=== PATIENT | female | born 1965 | race Caucasian/White ===

== ENCOUNTER 2018-10-28 20:23 | Emergency (ER) | payer OTHER, SELFPAY ==
[2018-10-28] VITALS (15 sets, daily range): BP systolic 127–158; BP diastolic 60–92; PULSE 71–85; RESP 13–21; TEMP 36.2; O2SAT 98–100
--- NOTE | 2018-10-28 20:36 | ED.GENADUL_ITS ---
Discharge Plan Discharge Details Chief Complaint: Chest Pain Primary Care Provider: Unknown,Unknown ED Provider: Katelyn Vyas Home Meds and New Rx's Prescriptions: No Action levothyroxine 175 mcg tablet 175 mcg PO DAILY RF: 0 clonazepam 2 mg tablet 2 mg PO DAILY RF: 0 mecobalamin (vitamin B12) 5,000 mcg tablet,disintegrating PO RF: 0 biotin 2,500 mcg capsule 5,000 mcg PO DAILY RF: 0 cholecalciferol (vitamin D3) 5,000 unit capsule 5,000 unit PO .3 times per week RF: 0 iron,carbonyl-vitamin C [Vitron-C] 65 mg iron- 125 mg tablet,delayed release (DR/EC) 1 tab PO BID RF: 0 multivitamin capsule 2 cap PO DAILY RF: 0 calcium citrate-vitamin D3 500 mg calcium -400 unit tablet,chewable 2 tab PO BID RF: 0 polyethylene glycol 3350 [GlycoLax] 17 gram/dose powder PO DAILY RF: 0 ibuprofen 200 mg capsule 200 mg PO QID PRNRF: 0 acetaminophen 325 mg capsule 325 mg PO Q4H PRNRF: 0 Medical Decision Making ECG Data Attestation: I personally reviewed and interpreted this ECG (s) as follows: Prior ECG tracings: not available for review Interpretation: sinus rhythm, rate of 86, qtc 344, no acute st t wave ischemic findings HPI General Date/Time Provider Initiated Documentation: 10/28/18 20:26 . Related Data Home Medications Medication Instructions Recorded Confirmed acetaminophen 325 mg capsule 325 mg PO Q4H PRN 08/11/18 08/11/18 biotin 2,500 mcg capsule 5,000 mcg PO DAILY cap 08/11/18 08/11/18 calcium citrate-vitamin D3 500 mg 2 tab PO BID tab 08/11/18 08/11/18 calcium-400 unit chewable tablet cholecalciferol (vitamin D3) 5,000 5,000 unit PO .3 times per week 08/11/18 08/11/18 unit capsule cap clonazepam 2 mg tablet 2 mg PO DAILY tab 08/11/18 08/11/18 ibuprofen 200 mg capsule 200 mg PO QID PRN 08/11/18 08/11/18 iron,carbonyl 65 mg-vitamin C 125 1 tab PO BID 08/11/18 08/11/18 mg tablet,delayed release levothyroxine 175 mcg tablet 175 mcg PO DAILY 08/11/18 08/11/18 mecobalamin (vitamin B12) 5,000 mcg PO tab 08/11/18 08/11/18 mcg disintegrating tablet multivitamin capsule 2 cap PO DAILY cap 08/11/18 08/11/18 polyethylene glycol 3350 17 PO DAILY gm 08/11/18 08/11/18 gram/dose oral powder Allergies Allergy/AdvReac Type Severity Reaction Status Date / Time No Known Allergies Allergy Verified 10/28/18 20:36 PFS Social History adopted: No foster care: No household members: spouse number of children: 3 current occupational status: employed 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
--- NOTE | 2018-10-28 20:56 | DI.RAD_ITS ---
SYMPTOM/DIAGNOSIS: CHEST PAIN PA AND LATERAL CHEST: The heart size is normal. The aorta is normal in diameter. The lungs appear clear. IMPRESSION: Negative chest xray.
--- NOTE | 2018-10-28 20:58 | W.ED.GENAD ---
Discharge Plan Disposition Patient Disposition: HOME Discharge Details Chief Complaint: Chest Pain Clinical Impression: Chest pain Primary Care Provider: Nicole Jerome ED Provider: Katelyn Vyas Home Meds and New Rx's Prescriptions: Continued levothyroxine 175 mcg tablet 175 mcg PO DAILY RF: 0 clonazepam 2 mg tablet 2 mg PO DAILY RF: 0 mecobalamin (vitamin B12) 5,000 mcg tablet,disintegrating PO RF: 0 cholecalciferol (vitamin D3) 5,000 unit capsule 5,000 unit PO .3 times per week RF: 0 Vitron-C 65 mg iron- 125 mg tablet,delayed release (DR/EC) 1 tab PO BID RF: 0 multivitamin capsule 2 cap PO DAILY RF: 0 calcium citrate-vitamin D3 500 mg calcium -400 unit tablet,chewable 2 tab PO BID RF: 0 polyethylene glycol 3350 [GlycoLax] 17 gram/dose powder PO DAILY RF: 0 ibuprofen 200 mg capsule 200 mg PO QID PRNRF: 0 acetaminophen 325 mg capsule 325 mg PO Q4H PRNRF: 0 Discharge Instructions Instructions: Chest Pain (ED) Additional Instructions: Begin Ranitidine again, 150mg daily. This is available over the counter. Keep journal of symptoms along with food intake around symptoms. Please call primary care tomorrow to discuss visit and follow up. Please follow up within the next week. If you develop increased pain, pain with exertion, shortness of breath or other new/worsening symptoms please seek care urgently once again. Discharge Data Discharge Date/Time-TO BE ENTERED AT DEPARTURE: 10/28/18 22:22 Medical Decision Making Patient is a 53-year-old female, accompanied by her , with chief complaint of left-sided chest discomfort that began 3 days ago. Pain has waxed and waned. She reports that particularly bothersome at night particular when she rolls onto her left side. She denies any shortness of breath. Denies any palpitations. Patient does have history of PVCs and reported heart murmur, murmur was not appreciated on exam. States she has had a lots of indigestion recently. Reports that this is not atypical for her given her history of gastric bypass. Reports that typically she can be symptom free but does report a large change in diet recently with the holidays. Was initially on Ranitidine to help with these symptoms after surgery initially. States that pain is typically when at rest, when I notice it. States that typically when busy she does not notice it. However, she has noted the discomfort today when going up stairs. States pain is increased with pressure application, caused discomfort when he hugged her today. Denies recent illness, deneis cough, no GI upset. Pain does not radiate into back. Denies SOB Exam is benign. BP elevated at 158/92. Pulse 85, O2 100%, afebrile. Pain is elicited with pressure applied to the left side of the chest anteriorly and laterally. No pain posteriorly. EKG reviewed by Dr. Samson, please see his note. NSR, rate 86. CXR reviewed by radiologist: FINDINGS: Lungs: Mild elevation of the left hemidiaphragm. No consolidation. Pleural space: Unremarkable. No pleural effusion. No pneumothorax. Heart/Mediastinum: Unremarkable. No cardiomegaly. Bones/joints: No acute bony findings. IMPRESSION: No acute findings. Lungs are clear. Labs without signfiicant abnormality. Troponin <0.02. As symptoms have been over the past 3 days, do not feel that repeat is necessary at this time. Patient received GI cocktail and feels much improved. Advised that at this time her symptoms do not raise high suspicion for cardiac source, labs and imaging are also reassuring. Discussed this with the patient. She has appointment with PCP next week. As she is feeling so much improved, will have her restart her Ranitidine as she has been on this previously and has had good success. Advised that her symptoms may be secondary to GI source vs. musculoskeletal discomfort. She was given strict return precautions. She will contact PCP tomorrow to discuss symptoms and ensure these can also be addressed at upcoming appointment. All of her questions and concerns were addressed, she is in agreement with this plan. HPI General Mode of arrival: ambulatory. Date/Time Provider Initiated Documentation: 10/28/18 20:26. Limitations to Documentation: no limitations. Information obtained by: patient and family. History of Present Illness 53 year old F presents to the emergency department with the chief complaint of chest discomfort, described as mild, with intensity rated at 3. Quality is described as aching, and is localized to the chest. Patient reports no radiation. Patient started experiencing this day(s) (3) and it has been intermittent. No relieving factors improve symptom(s), Immoblization worsens symptoms . Patient notes chest pain and loss of appetite; denies cough, diaphoresis, fever/chills, headaches, nausea/vomiting, rash and shortness of breath. Patient did receive the following treatments prior to arrival, none Related Data Home Medications Medication Instructions Recorded Confirmed acetaminophen 325 mg capsule 325 mg PO Q4H PRN 08/11/18 10/28/18 calcium citrate-vitamin D3 500 mg 2 tab PO BID tab 08/11/18 10/28/18 calcium-400 unit chewable tablet cholecalciferol (vitamin D3) 5,000 5,000 unit PO .3 times per week 08/11/18 10/28/18 unit capsule cap clonazepam 2 mg tablet 2 mg PO DAILY tab 08/11/18 10/28/18 ibuprofen 200 mg capsule 200 mg PO QID PRN 08/11/18 10/28/18 iron,carbonyl 65 mg-vitamin C 125 1 tab PO BID 08/11/18 10/28/18 mg tablet,delayed release levothyroxine 175 mcg tablet 175 mcg PO DAILY 08/11/18 10/28/18 mecobalamin (vitamin B12) 5,000 mcg PO tab 08/11/18 08/11/18 mcg disintegrating tablet multivitamin capsule 2 cap PO DAILY cap 08/11/18 10/28/18 polyethylene glycol 3350 17 PO DAILY gm 08/11/18 08/11/18 gram/dose oral powder Allergies Allergy/AdvReac Type Severity Reaction Status Date / Time No Known Allergies Allergy Verified 10/28/18 20:36 General Stated Complaint: Chest Pain JOSE ALEJANDRO: 3 Review of Systems Constitutional Reports as per HPI, Denies chills, Denies fever(s), Denies headache(s), Denies lethargy and Denies poor appetite Eyes Denies change in vision ENT Denies headache(s) Cardiovascular Reports as per HPI, Reports chest pain, Reports chest pain at rest, Denies chest pain with activity, Denies diaphoresis, Denies syncope, Denies rapid heart rate, Denies edema, Denies irregular heart rhythm, Denies lightheadedness, Reports radiating jaw, neck or arm pain (pain can radiate into the left shoulder), Denies palpitations, Denies dyspnea and Denies dyspnea on exertion Respiratory Reports as per HPI, Denies cough, Denies dyspnea, Denies dyspnea on exertion and Denies wheezing Gastrointestinal Reports as per HPI, Denies abdominal pain, Denies diarrhea, Denies nausea and Denies vomiting Musculoskeletal Reports as per HPI and Denies back pain Integumentary/Breasts Reports as per HPI and Denies rash Neurologic Denies syncope and Denies headache(s) Endocrine Denies palpitations Allergic/Immunologic Denies wheezing [facility] Medical History PVCs (premature ventricular contractions) (Chronic) Hypothyroidism (Chronic 05/23/18) Hyperlipidemia (Chronic 05/23/18) Borderline hypertension (Chronic 05/23/18) Surgical History Status post panniculectomy (Resolved) History of Jasbir-en-Y gastric bypass (Resolved) History of foot surgery (Resolved) History of section (Resolved) History of carpal tunnel release (Resolved) Family History Mother Hypertension Anxiety Depression Father Heart attack Social History adopted: No foster care: No household members: spouse number of children: 3 current occupational status: employed 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 pets and animals: Yes pets and animals: cat(s) Hx Recent Travel: No frequency: 5-6 times per week duration: 45-60 minutes/day Smoking/Tobacco Use Status: Never passive smoking exposure: No second hand exposure: No alcohol intake: current alcohol intake frequency: a few times a month substance use type: does not use do you feel safe at home: Yes Exam Const General: cooperative, healthy appearing, comfortable, no acute distress and well developed Nutritional Appearance: average body habitus and well nourished Orientation: alert, awake and oriented x3 HENMT Head: normal to inspection Ears: hearing grossly normal bilaterally Mouth: moist mucous membranes Chest Chest: normal inspection of the chest, normal palpation of entire chest wall, no crepitus and tenderness pectoral muscle on the left diffusely Resp Effort & Inspection: normal respiratory effort, able to speak in complete sentences and no respiratory distress Auscultation: clear to auscultation bilaterally, no rales, no rhonchi and no wheezes Cardio Rate: regular rate Rhythm: regular rhythm Heart Sounds: S1 normal and S2 normal GI Inspection: normal to inspection, no edema and non-distended Palpation: soft, no hepatosplenomegaly, not firm, no guarding, not rigid and nontender Auscultation: normal bowel sounds Back/Spine/Pelvis Back: no CVA tenderness Thoracic/Lumbar Spine: thoracic and lumbar spine normal to inspection Skin General skin exam: no rashes or lesions noted Trauma: no lacerations or abrasions Neuro General: alert, awake and oriented x3 Cognition: normal cognition Speech: speech normal Gait: normal gait Extrem General: normal to inspection, normal capillary refill, no pedal edema, no calf tenderness and normal gait Psych Appearance: grossly normal and well kempt Mental Status: mental status grossly normal Speech and Movement: speech and movement normal Course Vital Signs Temperature 36.2 C L 10/28/18 20:36 Pulse 85 10/28/18 20:36 Respiratory Rate 16 10/28/18 20:36 Blood Pressure 158/92 H 10/28/18 20:36 Pulse Oximetry 100 10/28/18 20:36 Temperature 36.2 C L 10/28/18 20:36 Temperature Source Temporal Artery Scan 10/28/18 20:36 Pulse 85 10/28/18 20:36 Respiratory Rate 16 10/28/18 20:43 Respiratory Effort 10/28/18 20:36 Blood Pressure 158/92 H 10/28/18 20:36 Blood Pressure Position Sitting 10/28/18 20:36 Pulse Oximetry 100 10/28/18 20:36 Oxygen Delivery Method Room Air 10/28/18 20:36 Oxygen Flow Rate 0 10/28/18 20:36 Pain Level 4 10/28/18 20:36
[2018-10-28 21:10] LABS: Abs Immature Grans 0.02 k/cumm (0.0-0.09); Absolute Basophil Count 0.04 k/cumm (0.0-0.2); Absolute Eosinophil Count 0.27 k/cumm (0.0-0.7); Absolute Lymphocyte Count 2.09 k/cumm (1.2-3.4); Absolute Monocyte Count 0.54 k/cumm (0.11-0.7); Absolute Neutrophil Count 3.58 k/cumm (1.2-6.7); Basophils % 0.6; Eosinophils % 4.1; HCT 38.2 % (36.0-46.0); HGB 13.1 g/dL (12.0-15.5); Immature Grans % 0.3; Mean Corp. HGB Concentration 34.3 g/dL (32.0-36.0); Mean Corpuscular Hemoglobin 30.5 pg (27.0-33.0); Mean Platelet Volume 9.9 fL (8.0-11.0); Monocytes % 8.3; Neutrophils % 54.7; Platelet Count 239 x1000/uL (130-400); RBC 4.29 m/cumm (4.00-5.20); RBC Distribution Width 13.2 % (11.7-14.6); White Blood Cell Count 6.54 k/cumm (4.4-10.8)
[2018-10-28 21:23] LABS: PTT Activated 21.6 sec (21.0-31.4); Prothrombin Time 9.9 sec (9.3-11.0)
[2018-10-28 21:24] LABS: ALT 32 U/L (12-78); AST 16 U/L (15-37); Albumin 3.6 g/dL (3.4-5.0); Alkaline Phosphatase 77 U/L (46-116); BUN 15 mg/dL (7-18); Bilirubin, Total 0.2 mg/dL (0.2-1.0); CREATININE 0.78 mg/dL (0.55-1.02); Calcium 8.8 mg/dL (8.5-10.1); Chloride 104 mmol/L (98-107); Glucose 101 mg/dL (70-100); Lipase 113 U/L (73-393); Potassium 3.9 mmol/L (3.5-5.1); Sodium 142 mmol/L (136-145); Total Protein 7.4 g/dL (6.4-8.2)
[2018-10-28 21:25] LABS: Troponin I < 0.02 ng/mL (0.00-0.06)
--- NOTE | 2018-10-28 21:54 | DI.VRAD_ITS ---
EXAM: XR Chest, 2 Views EXAM DATE/TIME: 10/28/2018 8:59 PM CLINICAL HISTORY: 53 years old, female; Pain; Other: Cp TECHNIQUE: XR of the chest, 2 views. COMPARISON: No relevant prior studies available. FINDINGS: Lungs: Mild elevation of the left hemidiaphragm. No consolidation. Pleural space: Unremarkable. No pleural effusion. No pneumothorax. Heart/Mediastinum: Unremarkable. No cardiomegaly. Bones/joints: No acute bony findings. IMPRESSION: No acute findings. Lungs are clear. Dictated and Authenticated by: Demetris Yi MD. Ordering:FAITH Zepeda MD
== END 2018-10-28 22:22 | disposition home or self-care (01) ==
PROVIDERS: Emergency Provider Physician Assistant; PCP Nurse Practitioner Family
DX: R07.9 Chest pain, unspecified (principal); Z86.79 Personal history of other diseases of the circulatory system
CPT/HCPCS: 36415; 80053; 83690; 99285; 71046; 83735; 84484; 85025; 85610; 85730; 99283

== ENCOUNTER 2019-04-07 17:51 | Outpatient (REF) | payer OTHER, SELFPAY ==
--- NOTE | 2019-04-07 16:30 | PAPFT_PTH ---
PATIENT: Sheridan Lopez LOC: [facility] U#:[id number] AGE/SX: 53/F ROOM: RE04/07/[address]: Nicole Jerome : 1965 BED: DIS: 04/07/2019 SPEC #: [id number] RECD: 04/08/19 13:05 STATUS: REINA REMilly #: [id number] GORGE: 04/07/19 16:[address]: Nicole Jerome DEPT: [facility] Cytology RECD BY: Ute Ruiz Tissues: 1 - CX/ENDOCX FOR PAP SMEARS Procedures: PAP THIN PREP/UVM Screening HPV DNA PROBE Comments: [id number]
== END 2019-04-07 18:11 ==
LOC: NCHCN 17:51
PROVIDERS: PCP Nurse Practitioner Family; Visit Provider Nurse Practitioner Family
DX: Z12.4 Encounter for screening for malignant neoplasm of cervix (principal); Z11.51 Encounter for screening for human papillomavirus (HPV)
CPT/HCPCS: 88142; 87624

== ENCOUNTER 2019-05-18 00:34 | Outpatient (CLI) | payer OTHER, SELFPAY ==
--- NOTE | 2019-05-18 17:06 | DI.MAMMO_ITS ---
SYMPTOM/DIAGNOSIS: SCREENING, Z12.31 MAMMOGRAMS: Mammograms were interpreted according to the usual protocol including computer analysis with CAD system, tomosynthesis and C view imaging. Comparison is with the prior examinations. No suspicious masses or microcalcifications are seen. There is no definite evidence of malignancy. IMPRESSION: Negative mammogram. Routine screening is recommended. Category 1, breast density B. MQSA ASSESSMENT OF FINDINGS: Negative. Category 1. Patient will receive a letter notifying them of these results. BI-RADS category B. There are scattered areas of fibroglandular density.
== END 2019-05-18 00:54 ==
PROVIDERS: PCP Nurse Practitioner Family; Visit Provider Nurse Practitioner Family
DX: Z12.31 Encounter for screening mammogram for malignant neoplasm of breast (principal)
CPT/HCPCS: 77063; 77067

== ENCOUNTER 2019-10-05 13:21 | Outpatient (CLI) | payer OTHER, SELFPAY ==
[2019-10-05 15:58] LABS: Iron 54 ug/dL (50-170); Total Iron Binding Capacity 306 ug/dL (250-450); Transferrin Sat 18 % (15-50)
[2019-10-05 16:04] LABS: Ferritin 79 ng/mL (8-252)
== END 2019-10-05 13:41 ==
PROVIDERS: PCP Nurse Practitioner Family; Visit Provider Nurse Practitioner Family
DX: E83.10 Disorder of iron metabolism, unspecified (principal); K90.9 Intestinal malabsorption, unspecified; Z98.84 Bariatric surgery status
CPT/HCPCS: 36415; 82728; 83540; 83550

== ENCOUNTER 2019-10-05 15:18 | Outpatient (CLI) | payer OTHER, SELFPAY ==
--- NOTE | 2019-10-05 12:51 | DI.US_ITS ---
EXAM: US LOWER EXTREMITY VENOUS LT CLINICAL HISTORY: LOCALIZED SWELLING ON LT LEG, R22.42 TECHNIQUE: Ultrasound performed using standard protocol. COMPARISON: No exams were available for comparison FINDINGS: Thrombus is visible in the greater saphenous vein 2.4 centimeters from the saphenofemoral junction ex tending distally. No deep venous thrombosis is identified. No Yao cyst is seen. IMPRESSION: Saphenous thrombosis. No evidence of deep venous thrombosis.
== END 2019-10-05 15:38 ==
PROVIDERS: PCP Nurse Practitioner Family; Visit Provider Nurse Practitioner Family
DX: R22.42 Localized swelling, mass and lump, left lower limb (principal); M79.662 Pain in left lower leg; I82.812 Embolism and thrombosis of superficial veins of left lower extremity
CPT/HCPCS: 93971

== ENCOUNTER 2020-05-06 02:39 | Outpatient (CLI) | payer OTHER, SELFPAY ==
--- NOTE | 2020-05-06 | DI.US_ITS ---
EXAM: US PELVIS TRANSVAGINAL CLINICAL HISTORY: POSTMENOPAUSAL BLEEDING, N95.0 TECHNIQUE: Transabdominal and transvaginal imaging was performed using standard protocol. COMPARISON: US PELVIS TRANSVAG from 02/11/2015 FINDINGS: Exam is limited by the patient's body habitus. The uterus was not well seen on the transvaginal imag es. The endometrial stripe was not well evaluated. The ovaries are well seen. KIDNEYS: Kidneys are symmetric in size. No evidence of renal calculi. No evidence of hydronephrosis. No renal mass or cyst identified. UTERUS: Anteverted. 8.4 x 4.4 x 5.2 cm Endometrium: measures 7 millimeters on transabdominal images. Not seen on transvaginal images. Myometrium: Unremarkable. No fibroids are visible. Cervix: Unremarkable. OVARIES: Right: Cyst or mass: None. Left: Cyst or mass: 1.1 centimeter simple cyst. DOPPLER: Color: Symmetric and uniform flow to both ovaries. No hyperemia. Duplex: Normal ovarian arterial waveforms visualized. CUL-DE-SAC: Free fluid: None. IMPRESSION: Limited evaluation of the endometrial stripe. 7 millimeters on trans abdominal imaging. DATA REPOSITORY:
== END 2020-05-06 02:59 ==
PROVIDERS: PCP Nurse Practitioner Family; Visit Provider Obstetrics & Gynecology
DX: N95.0 Postmenopausal bleeding (principal); N83.292 Other ovarian cyst, left side
CPT/HCPCS: 76830; 76856

== ENCOUNTER 2021-06-16 14:14 | Outpatient (REF) | payer OTHER, SELFPAY ==
[2021-06-16 21:00] LABS: Calculated LDL 141 mg/dL (<100); Cholesterol 237 mg/dL (<200); HDL Cholesterol 78 mg/dL (40-60); TSH (W/Ref FT4) 0.37 uIU/mL (0.36-3.74); Triglyceride 94 mg/dL (<150)
== END 2021-06-16 14:15 | disposition home or self-care (01) ==
LOC: NCHCN 14:14
PROVIDERS: PCP Nurse Practitioner Family; Visit Provider Nurse Practitioner Family
DX: E03.9 Hypothyroidism, unspecified (principal); Z13.220 Encounter for screening for lipoid disorders
CPT/HCPCS: 80061; 84443

== ENCOUNTER 2021-07-05 02:06 | Outpatient (CLI) | payer OTHER, SELFPAY ==
--- NOTE | 2021-07-05 | DI.DEXA_ITS ---
Exam(s) XR DEXA BONE DENSITY W/WO CHRIS EXAM: XR DEXA BONE DENSITY W/WO CHRIS CLINICAL HISTORY: H/O GASTRIC BYPASS, SCREENING FOR OSTEOPOROSIS TECHNIQUE: Routine DEXA evaluation of the lumbar spine, hip, or forearm. COMPARISON: No exams were available for comparison FINDINGS: Performed on a Hologic unit. Lateral image: No compression fracture evident. Lumbar Spine total T-score: -0.4 Hip total T-score:-1.9 Independent reading at the femoral neck yields a T-score of -2.1 Forearm total T-score: -3.0 IMPRESSION: Bone mineral density measures in the osteopenia- osteoporosis range. Fracture risk is moderate-high. Note: Any spine fracture indicates 5x risk for subsequent spine fracture and 2x risk for subsequent h ip fracture. World Health Organization criteria for BMD interpretation classify patients: Normal...... T- Score at or above -1.0 Osteopenic... T- Score between -1.0 and -2.5 Osteoporosis... T-Score at or below -2.5
== END 2021-07-05 02:26 ==
PROVIDERS: PCP Nurse Practitioner Family; Visit Provider Nurse Practitioner Family
DX: Z98.84 Bariatric surgery status; M85.89 Other specified disorders of bone density and structure, multiple sites; M81.0 Age-related osteoporosis without current pathological fracture
CPT/HCPCS: 77080

== ENCOUNTER 2021-07-17 00:39 | Outpatient (CLI) | payer OTHER, SELFPAY ==
--- NOTE | 2021-07-17 16:10 | DI.MAMMO_ITS ---
Exam(s) MAMMO SCREENING EXAM: MAMMO SCREENING CLINICAL HISTORY: SCREENING, Z12.31. TECHNIQUE: Bilateral full field digital CC and MLO mammographic images were obtained with 3D tomosyn thesis and utilizing computer aided detection (CAD). COMPARISON: Prior mammograms dating back to 2011, the most recent being April 2019. FINDINGS: There are no CAD designations. There are no new spiculated masses nor malignant appearing microcalcification groups. There is no significant architectural distortion nor skin thickening-retraction. IMPRESSION: No radiographic evidence of malignancy. BI-RADS Category 1 - Negative Breast Density - Category B - Scattered areas of fibroglandular density Breast density Category C or D implies that the patient has dense breast tissue. Dense breast tissue can make it harder to find cancer on a mammogram. Dense breast tissue is also associated with an incr eased risk of breast cancer. This information about the result of the mammogram report was provided to the patient to raise their awareness. Use this report when you speak with the patient about their risks for breast cancer, which includes their family history. At that time, you may recommend additional screening tests (Ultrasoun d or MRI) as these tests may add significant information. A negative radiographic report should not delay biopsy if a dominant or clinically suspicious mass is present. Up to ten percent of cancers are not identified on mammography. A negative report may reinforce clinical impression. Adenosis and dense breasts may obscure an underlying neoplasm. False positive reports average 6 to 10%. Patient will receive a letter notifying them of these results.
== END 2021-07-17 00:59 ==
PROVIDERS: PCP Nurse Practitioner Family; Visit Provider Nurse Practitioner Family
DX: Z12.31 Encounter for screening mammogram for malignant neoplasm of breast (principal)
CPT/HCPCS: 77063; 77067

== ENCOUNTER 2022-05-09 16:12 | Outpatient (REF) | payer OTHER, SELFPAY ==
[2022-05-09 20:25] LABS: HCT 39.7 % (36.0-46.0); HGB 13.2 g/dL (11.2-15.7); MCH 30.1 pg (27.0-33.0); MCHC 33.2 % (32.0-36.0); MCV 90 fL (80-95); MPV 10.7 fL (8.0-11.0); Platelet Count 266 10^3/uL (130-400); RBC 4.39 10^6/uL (3.93-5.22); RDW-SD 42.7 fL; WBC 7.67 10^3/uL (4.4-10.8)
[2022-05-09 21:00] LABS: Hemoglobin A1C 5.4 % (<5.7)
[2022-05-09 21:11] LABS: Iron 83 ug/dL (50-170); Total Iron Binding Capacity 369 ug/dL (250-450); Transferrin Sat 22 % (15-50)
[2022-05-09 21:33] LABS: ALT 38 U/L (14-59); AST 20 U/L (15-37); Albumin 4.2 g/dL (3.4-5.0); Alkaline Phosphatase 80 U/L (46-116); Anion Gap 11.4 mmol/L (3-11); BUN 23 mg/dL (7-18); Bilirubin, Total 0.3 mg/dL (0.2-1.0); CO2 29.6 mmol/L (21.0-32.0); CREATININE 0.9 mg/dL (0.55-1.02); Calcium 9.1 mg/dL (8.5-10.1); Chloride 103 mmol/L (98-107); Ferritin 91 ng/mL (8-252); Glucose 91 mg/dL (74-106); Potassium 4.8 mmol/L (3.5-5.1); Sodium 144 mmol/L (136-145); TSH (W/Ref FT4) 1.35 uIU/mL (0.36-3.74); Total Protein 7.8 g/dL (6.4-8.2); Vitamin B12 1066 pg/mL (193-986)
[2022-05-10 05:31] LABS: Vitamin D 25 Total 46.6 ng/mL (30-100)
[2022-05-10 18:31] LABS: Parathyroid Hormone,Intact 104 pg/mL (19-88)
[2022-05-13 17:12] LABS: Thiamine (Vitamin B1), WB 171 nmol/L (70-180)
[2022-05-14 10:20] LABS: Free Retinol (Vitamin A) 52.6 mcg/dL (32.5-78.0)
== END 2022-05-09 16:13 | disposition home or self-care (01) ==
LOC: NCHCN 16:12
PROVIDERS: PCP Nurse Practitioner Family; Visit Provider Nurse Practitioner Family
DX: Z98.84 Bariatric surgery status (principal)
CPT/HCPCS: 80053; 82306; 85027; 82607; 82728; 83036; 83540; 83550; 83970; 84425; 84443; 84590

== ENCOUNTER 2023-02-20 08:27 | Outpatient (REF) | payer OTHER, SELFPAY ==
[2023-02-20 14:45] LABS: HCT 41.4 % (36.0-46.0); HGB 14.2 g/dL (11.2-15.7); MCHC 34.3 % (32.0-36.0); MCV 90 fL (80-95); MPV 10.5 fL (8.0-11.0); Platelet Count 282 10^3/uL (130-400); RBC 4.58 10^6/uL (3.93-5.22); RDW 13.2 % (11.7-14.6); WBC 7.41 10^3/uL (4.4-10.8)
[2023-02-20 15:00] LABS: Iron 77 ug/dL (50-170); Total Iron Binding Capacity 320 ug/dL (250-450); Transferrin Sat 24 % (15-50)
[2023-02-20 15:09] LABS: Hemoglobin A1C 5.4 % (<5.7)
[2023-02-20 15:23] LABS: Vitamin D 25 Total 45.1 ng/mL (30-100)
[2023-02-20 15:25] LABS: ALT 35 U/L (14-59); AST 19 U/L (15-37); Albumin 3.9 g/dL (3.4-5.0); Alkaline Phosphatase 83 U/L (46-116); Anion Gap 5.5 mmol/L (3-11); BUN 14 mg/dL (7-18); Bilirubin, Total 0.4 mg/dL (0.2-1.0); CO2 30.5 mmol/L (21.0-32.0); CREATININE 0.8 mg/dL (0.55-1.02); Calcium 9.1 mg/dL (8.5-10.1); Chloride 104 mmol/L (98-107); Estimated GFR 85.89 (mL/min/1.73m2); Glucose 111 mg/dL (74-106); Potassium 5.1 mmol/L (3.5-5.1); Sodium 140 mmol/L (136-145); TSH (W/Ref FT4) 1.06 uIU/mL (0.36-3.74); Total Protein 7.6 g/dL (6.4-8.2); Vitamin B12 973 pg/mL (193-986)
[2023-02-21 11:26] LABS: Parathyroid Hormone,Intact 87 pg/mL (19-88)
[2023-02-22 17:12] LABS: Free Retinol (Vitamin A) 40.2 mcg/dL (32.5-78.0)
== END 2023-02-20 08:28 | disposition home or self-care (01) ==
LOC: NCHCN 08:27
PROVIDERS: PCP Nurse Practitioner Family; Visit Provider Nurse Practitioner Family
DX: Z98.84 Bariatric surgery status (principal); E66.9 Obesity, unspecified; R79.89 Other specified abnormal findings of blood chemistry; Z00.00 Encounter for general adult medical examination without abnormal findings
CPT/HCPCS: 80053; 82306; 85027; 82607; 83036; 83540; 83550; 83970; 84443; 84590

== ENCOUNTER → 2023-09-23 01:45 | Outpatient (CLI) | payer OTHER, SELFPAY ==
--- NOTE | 2023-09-23 | DI.MAMMO_ITS ---
Exam(s) MAMMO SCREENING EXAM: MAMMO SCREENING CLINICAL HISTORY: SCREENING Z12.39. TECHNIQUE: Bilateral full field digital CC and MLO mammographic images were obtained with 3D tomosyn thesis and utilizing computer aided detection (CAD). COMPARISON: Prior mammograms were reviewed. FINDINGS: There has been no significant change in the appearance and distribution of the fibroglandular tissue. There are no new spiculated masses nor malignant appearing microcalcification groups. There is no significant architectural distortion nor skin thickening-retraction. IMPRESSION: No radiographic evidence of malignancy. BI-RADS Category 1 - Negative Breast Density - Category B - Scattered areas of fibroglandular density Breast density Category C or D implies that the patient has dense breast tissue. Dense breast tissue can make it harder to find cancer on a mammogram. Dense breast tissue is also associated with an incr eased risk of breast cancer. This information about the result of the mammogram report was provided to the patient to raise their awareness. Use this report when you speak with the patient about their risks for breast cancer, which includes their family history. At that time, you may recommend additional screening tests (Ultrasoun d or MRI) as these tests may add significant information. A negative radiographic report should not delay biopsy if a dominant or clinically suspicious mass is present. Up to ten percent of cancers are not identified on mammography. A negative report may reinforce clinical impression. Adenosis and dense breasts may obscure an underlying neoplasm. False positive reports average 6 to 10%. Patient will receive a letter notifying them of these results.
== END ==
PROVIDERS: PCP Nurse Practitioner Family; Visit Provider Nurse Practitioner Family
DX: Z12.31 Encounter for screening mammogram for malignant neoplasm of breast (principal)
CPT/HCPCS: 77063; 77067

== ENCOUNTER → 2023-09-25 02:09 | Outpatient (CLI) | payer OTHER, SELFPAY ==
--- NOTE | 2023-09-25 | DI.DEXA_ITS ---
Exam(s) XR DEXA BONE DENSITY W/WO CHRIS EXAM: XR DEXA BONE DENSITY W/WO CHRIS CLINICAL HISTORY: OSTEOPOROSIS, M81.0 TECHNIQUE: COMPARISON: Comparison 07/05/2021 FINDINGS: Lateral Spine Image: Unremarkable. No compression deformities identified. Left hip: Total T-Score: -2.0. This compares to -1.9 on the prior examination. Total Z-Score: -1.1 T- and Z-scores: Findings are consistent with osteopenia. Lumbar Spine: Total T-Score: 0.2. This compares to -0.4 on the prior examination. Total Z-Score: 1.5 T- and Z-scores: Within normal limits. IMPRESSION: No evidence of osteoporosis.
== END ==
PROVIDERS: PCP Nurse Practitioner Family; Visit Provider Nurse Practitioner Family
DX: Z13.820 Encounter for screening for osteoporosis (principal); M81.0 Age-related osteoporosis without current pathological fracture
CPT/HCPCS: 77080

== ENCOUNTER 2024-02-27 21:27 | Outpatient (REF) | payer OTHER, SELFPAY ==
--- NOTE | 2024-02-27 15:00 | PAPFT_PTH ---
PATIENT: Sheridan Lopez LOC: [facility] U#:[id number] AGE/SX: 58/F ROOM: RE02/27/[address]: Nicole Jerome : 1965 BED: DIS: 02/27/2024 SPEC #: [id number] RECD: 02/28/24 13:07 STATUS: REINA DEVI #: [id number] GORGE: 02/27/24 15:[address]: Nicole Jerome [facility] Cytology RECD BY: Ute Ruiz Tissues: 1 - CX/ENDOCX FOR PAP SMEARS Procedures: PAP THIN PREP/UVM Screening HPV DNA PROBE Comments: [id number]
[2024-02-27 21:48] LABS: HCT 42.6 % (36.0-46.0); HGB 13.9 g/dL (11.2-15.7); MCH 29.8 pg (27.0-33.0); MCHC 32.6 % (32.0-36.0); MCV 91 fL (80-95); MPV 10.7 fL (8.0-11.0); Platelet Count 273 10^3/uL (130-400); RBC 4.67 10^6/uL (3.93-5.22); RDW 13.1 % (11.7-14.6); WBC 7.75 10^3/uL (4.4-10.8)
[2024-02-27 22:02] LABS: Iron 61 ug/dL (50-170); Total Iron Binding Capacity 347 ug/dL (250-450); Transferrin Sat 18 % (15-50)
[2024-02-27 22:34] LABS: ALT 42 U/L (14-59); AST 21 U/L (15-37); Albumin 4.3 g/dL (3.4-5.0); Alkaline Phosphatase 93 U/L (46-116); Anion Gap 12.2 mmol/L (3-11); BUN 17 mg/dL (7-18); Bilirubin, Total 0.3 mg/dL (0.2-1.0); CO2 27.8 mmol/L (21.0-32.0); CREATININE 0.9 mg/dL (0.55-1.02); Calcium 9.2 mg/dL (8.5-10.1); Calculated LDL 128 mg/dL (<100); Chloride 103 mmol/L (98-107); Cholesterol 218 mg/dL (<200); Ferritin 126 ng/mL (8-252); Glucose 95 mg/dL (74-106); HDL Cholesterol 72 mg/dL (40-60); Potassium 4.6 mmol/L (3.5-5.1); Sodium 143 mmol/L (136-145); TSH (W/Ref FT4) 0.09 uIU/mL (0.36-3.74); Total Protein 8.1 g/dL (6.4-8.2); Triglyceride 94 mg/dL (<150); Vitamin B12 1052 pg/mL (193-986)
[2024-02-27 22:55] LABS: FREE T4 < 0.10 ng/dL (0.76-1.46)
[2024-02-28 18:28] LABS: Parathyroid Hormone,Intact 112 pg/mL (19-88)
== END 2024-02-27 21:28 | disposition home or self-care (01) ==
LOC: LBN 21:27
PROVIDERS: PCP Nurse Practitioner Family; Visit Provider Nurse Practitioner Family
DX: Z12.4 Encounter for screening for malignant neoplasm of cervix (principal); Z00.00 Encounter for general adult medical examination without abnormal findings; Z98.84 Bariatric surgery status; E03.9 Hypothyroidism, unspecified; E21.3 Hyperparathyroidism, unspecified
CPT/HCPCS: 80053; 80061; 85027; 88142; 82607; 82728; 83540; 83550; 83970; 84439; 84443; 87624

== ENCOUNTER 2024-03-13 02:39 | Outpatient (CLI) | payer OTHER, SELFPAY ==
[2024-03-13 17:50] LABS: FREE T4 1.32 ng/dL (0.76-1.46); TSH 0.04 uIU/Ml (0.36-3.74)
[2024-03-14 22:20] LABS: T3,Free 3.7 pg/mL (2.8-5.3)
== END 2024-03-13 02:40 | disposition home or self-care (01) ==
LOC: LBO 02:40
PROVIDERS: PCP Nurse Practitioner Family; Visit Provider Nurse Practitioner Family
DX: E03.9 Hypothyroidism, unspecified (principal)
CPT/HCPCS: 36415; 84439; 84443; 84481

== ENCOUNTER 2024-10-14 04:34 | Outpatient (CLI) | payer BC, SELFPAY ==
[2024-10-14 12:37] LABS: TSH (W/Ref FT4) 1.57 uIU/mL (0.36-3.74)
== END 2024-10-14 04:35 | disposition home or self-care (01) ==
LOC: LOS 04:34
PROVIDERS: PCP Nurse Practitioner Family; Visit Provider Nurse Practitioner Family
DX: E03.9 Hypothyroidism, unspecified (principal)
CPT/HCPCS: 36415; 84443

== ENCOUNTER 2025-03-09 16:52 | Outpatient (REF) | payer BC, SELFPAY ==
[2025-03-09 21:54] LABS: HCT 40.6 % (36.0-46.0); HGB 13.6 g/dL (11.2-15.7); MCH 30.2 pg (27.0-33.0); MCHC 33.5 % (32.0-36.0); MCV 90 fL (80-95); MPV 10.4 fL (8.0-11.0); Platelet Count 317 10^3/uL (130-400); RDW 13.1 % (11.7-14.6); RDW-SD 43.2 fL; WBC 7.76 10^3/uL (4.4-10.8)
[2025-03-09 22:11] LABS: Iron 52 ug/dL (50-170); Total Iron Binding Capacity 345 ug/dL (250-450)
[2025-03-09 22:24] LABS: ALT 48 U/L (14-59); AST 27 U/L (15-37); Albumin 4.1 g/dL (3.4-5.0); Alkaline Phosphatase 92 U/L (46-116); BUN 17 mg/dL (7-18); Bilirubin, Total 0.3 mg/dL (0.2-1.0); CREATININE 0.9 mg/dL (0.55-1.02); Calcium 9.2 mg/dL (8.5-10.1); Calculated LDL 123 mg/dL (<100); Chloride 103 mmol/L (98-107); Cholesterol 215 mg/dL (<200); Estimated GFR 73.64 (mL/min/1.73m2); Ferritin 78 ng/mL (8-252); Glucose 106 mg/dL (74-106); HDL Cholesterol 78 mg/dL (>or=50); Potassium 4.8 mmol/L (3.5-5.1); Sodium 140 mmol/L (136-145); TSH (W/Ref FT4) 6.29 uIU/mL (0.36-3.74); Total Protein 7.9 g/dL (6.4-8.2); Triglyceride 71 mg/dL (<150)
[2025-03-09 22:44] LABS: FREE T4 0.91 ng/dL (0.76-1.46)
[2025-03-10 21:51] LABS: Parathyroid Hormone,Intact 127 pg/mL (19-88)
[2025-03-11 21:26] LABS: Vitamin D 25 Total 49 ng/mL (30-100)
== END 2025-03-09 16:53 | disposition home or self-care (01) ==
LOC: NCHCN 16:52
PROVIDERS: PCP Nurse Practitioner Family; Visit Provider Nurse Practitioner Family
DX: Z00.00 Encounter for general adult medical examination without abnormal findings (principal); R79.89 Other specified abnormal findings of blood chemistry; Z98.84 Bariatric surgery status; E03.9 Hypothyroidism, unspecified
CPT/HCPCS: 80053; 80061; 82306; 85027; 82728; 83540; 83550; 83970; 84439; 84443

== ENCOUNTER 2025-04-12 00:24 | Outpatient (CLI) | payer BC, SELFPAY ==
--- NOTE | 2025-04-12 | DI.MAMMO_ITS ---
Exam(s) MAMMO SCREENING EXAM: MAMMO SCREENING CLINICAL HISTORY: Z12.31 Screening mammo TECHNIQUE: Bilateral full field digital CC and MLO mammographic images were obtained with 3D tomosynthesis and utilizing computer aided detection (CAD). COMPARISON: Comparison is made with prior examinations. FINDINGS: Masses/Architectural Distortion: No suspicious masses or areas of architectural distortion are present. Microcalcifications: No suspicious pleomorphic-type are seen. Skin Thickening/Nipple Retraction: None. IMPRESSION: 1. No significant interval change with no specific features of malignancy noted. 2. Unless there is more urgent need, screening mammography is recommended, as per [employer] guidelines. BI-RADS Category 1 - Negative Breast Density - Category B - There are scattered areas of fibroglandular density. Breast density Category C or D implies that the patient has dense breast tissue. Dense breast tissue can make it harder to find cancer on a mammogram. Dense breast tissue is also associated with an increased risk of breast cancer. This information about the result of the mammogram report was provided to the patient to raise their awareness. Use this report when you speak with the patient about their risks for breast cancer, which includes their family history. At that time, you may recommend additional screening tests (Ultrasound or MRI) as these tests may add significant information. A negative radiographic report should not delay biopsy if a dominant or clinically suspicious mass is present. Up to ten percent of cancers are not identified on mammography. A negative report may reinforce clinical impression. Adenosis and dense breasts may obscure an underlying neoplasm. False positive reports average 6 to 10%. Patient will receive a letter notifying them of these results.
== END 2025-04-12 00:44 ==
PROVIDERS: PCP Nurse Practitioner Family; Visit Provider Nurse Practitioner Family
DX: Z12.31 Encounter for screening mammogram for malignant neoplasm of breast (principal)
CPT/HCPCS: 77063; 77067